=== PATIENT | female | born 1980 | race Caucasian/White ===

== ENCOUNTER 2023-10-20 12:35 | Outpatient (CLI) | payer BC, SELFPAY | END 2023-10-20 12:36 | disposition home or self-care (01) | PROVIDERS: PCP Family Medicine; Visit Provider Physician Assistant | DX: Z01.419 Encounter for gynecological examination (general) (routine) without abnormal findings (principal); E78.5 Hyperlipidemia, unspecified; N92.0 Excessive and frequent menstruation with regular cycle; Z13.1 Encounter for screening for diabetes mellitus; Z13.29 Encounter for screening for other suspected endocrine disorder; Z13.6 Encounter for screening for cardiovascular disorders | CPT/HCPCS: 80061; 82947; 84443 ==

== ENCOUNTER 2023-10-23 12:41 | Outpatient (CLI) | payer BC, SELFPAY ==
--- NOTE | 2023-10-23 13:00 | CRLHL7_ITS ---
For Patients: As a result of the Century Cures Act, medical imaging exams and procedure reports are released immediately into your electronic medical record. You may view this report before your referring provider. If you have questions, please contact your health care provider. INDICATION: excessive and frequent menstruations. pre IUD placement. COMPARISON: none TECHNIQUE: 2D torres scale and color Doppler images were acquired of the pelvis using a transabdominal and transvaginal approach. FINDINGS: Sonographic images demonstrate a normal size and smooth outer contour of the uterus. Uterus measures 12.8 cm in length by 4.7 cm in AP diameter by 6.5 cm in transverse dimension. The myometrium has a normal uniform echotexture. The endometrial lining measures 5.2 mm in composite thickness. The right ovary measures 3.1 x 1.9 x 2.6 cm in size and the left ovary measures 4.1 x 2.8 x 3.6 cm. The ovaries demonstrate normal arterial and venous blood flow on color Doppler analysis. There are no suspicious fluid collections within the cul-de-sac. Simple left ovarian cyst measures 2.6 x 1.7 x 2.1 cm. IMPRESSION: Endometrial thickness 5.2 millimeters. No endometrial fluid. Dictated by Darron Stinson MD @ 10/24/2023 6:59:47 AM (Electronically Signed)
== END 2023-10-23 12:42 | disposition home or self-care (01) ==
LOC: US 12:42
PROVIDERS: PCP Family Medicine; Visit Provider Physician Assistant
DX: N92.0 Excessive and frequent menstruation with regular cycle (principal); R93.89 Abnormal findings on diagnostic imaging of other specified body structures
CPT/HCPCS: 76830; 76856

== ENCOUNTER 2023-11-10 10:01 | Outpatient (CLI) | payer BC, SELFPAY ==
--- NOTE | 2023-11-10 10:27 | W.ANESCHARGE ---
Anesthesia Charges Start Date/Time Anesthesia Start Date: 11/10/23 Anesthesia Start Time: 11:20 Stop Date/Time Anesthesia Stop Date: 11/10/23 Anesthesia Stop Time: 11:42
--- NOTE | 2023-11-10 11:44 | W.ANESCHARGE ---
Anesthesia Charges Start Date/Time Anesthesia Start Date: 11/10/23 Anesthesia Start Time: 11:20 Stop Date/Time Anesthesia Stop Date: 11/10/23 Anesthesia Stop Time: 11:42
== END 2023-11-10 10:02 | disposition home or self-care (01) ==
LOC: OP CLINIC 10:02
PROVIDERS: Visit Provider Internal Medicine
DX: Z12.11 Encounter for screening for malignant neoplasm of colon (principal); K57.30 Diverticulosis of large intestine without perforation or abscess without bleeding
CPT/HCPCS: 00811; 00812; 45378; J2704

== ENCOUNTER 2023-12-17 14:31 | Outpatient (CLI) | payer BC, SELFPAY ==
--- NOTE | 2023-12-17 14:40 | CRLHL7_ITS ---
For Patients: As a result of the Cures Act, medical imaging exams and procedure reports are released immediately into your electronic medical record. You may view this report before your referring provider. If you have questions, please contact your health care provider. BILATERAL DIGITAL SCREENING MAMMOGRAM WITH COMPUTER-AIDED DETECTION AND TOMOSYNTHESIS CLINICAL HISTORY: Routine screening exam. COMPARISON: None. TECHNIQUE: Digital mammogram in CC and MLO projections including computer-aided detection (CAD). Tomosynthesis was used in this interpretation. BREAST COMPOSITION: There are scattered areas of fibroglandular density. FINDINGS: RIGHT Breast: Focal asymmetric density upper outer quadrant 8 cm from the nipple. LEFT Breast: No suspicious findings. IMPRESSION: RIGHT breast asymmetry/mass. RECOMMENDATIONS: Additional mammographic views of the RIGHT breast including 3D spot compression CC/MLO. RIGHT breast ultrasound may also be required. The [facility] will contact the patient for follow-up. BI-RADS Category 0: Incomplete: Need Additional Imaging Evaluation and/or Prior Mammograms for Comparison A lay language report of this examination will be provided to the patient. Dictated by Darron Stinson MD @ 12/26/2023 8:51:56 AM /sp SP/Dictated by: Darron Stinson MD @ 12/26/2023 8:51:00 AM (Electronically Signed)
== END 2023-12-17 14:32 | disposition home or self-care (01) ==
PROVIDERS: Visit Provider Physician Assistant
DX: Z12.31 Encounter for screening mammogram for malignant neoplasm of breast (principal); N63.10 Unspecified lump in the right breast, unspecified quadrant
CPT/HCPCS: 77063; 77067

== ENCOUNTER 2023-12-30 11:59 | Outpatient (CLI) | payer BC, SELFPAY ==
--- NOTE | 2023-12-30 12:00 | CRLHL7_ITS ---
For Patients: As a result of the Century Cures Act, medical imaging exams and procedure reports are released immediately into your electronic medical record. You may view this report before your referring provider. If you have questions, please contact your health care provider. RIGHT DIAGNOSTIC MAMMOGRAM WITH COMPUTER-AIDED DETECTION AND TOMOSYNTHESIS RIGHT BREAST ULTRASOUND CLINICAL HISTORY: RIGHT breast mass/asymmetry. COMPARISON: 12/17/2023. TECHNIQUE: Digital RIGHT mammogram in two projections. Computer-aided detection and tomosynthesis were used in this interpretation. Real-time ultrasound imaging of RIGHT breast with imaging documentation. Scanning was performed by both the technologist and the radiologist. BREAST COMPOSITION: There are scattered areas of fibroglandular density. FINDINGS: 3D CC/MLO RIGHT breast mammogram images submitted. No architectural distortion or suspicious calcifications are present. Decreased conspicuity of the previously noted asymmetric density particularly on the spot MLO view. Targeted RIGHT breast ultrasound performed in the upper-outer quadrant 10 o`clock 9 cm from the nipple. No suspicious mass is present. Normal fat lobules noted. IMPRESSION: No suspicious findings. No evidence of malignancy. RECOMMENDATIONS: Annual BILATERAL screening mammography. BI-RADS Category 2: Benign Results and recommendations discussed with the patient. A lay language report of this examination will be provided to the patient. Dictated by Darron Stinson MD @ 12/30/2023 12:45:50 PM /sp SP/Dictated by: Darron Stinson MD @ 12/30/2023 12:45:00 PM (Electronically Signed)
--- NOTE | 2023-12-30 12:30 | CRLHL7_ITS ---
For Patients: As a result of the Century Cures Act, medical imaging exams and procedure reports are released immediately into your electronic medical record. You may view this report before your referring provider. If you have questions, please contact your health care provider. PLEASE SEE RIGHT BREAST DIAGNOSTIC MAMMOGRAM PERFORMED SAME DAY. CRL:sp SP/Dictated by: Darron Stinson MD @ 12/30/2023 1:30:00 PM (Electronically Signed)
== END 2023-12-30 12:00 | disposition home or self-care (01) ==
LOC: MAMMO 12:01
PROVIDERS: Visit Provider Physician Assistant
DX: N63.10 Unspecified lump in the right breast, unspecified quadrant (principal); R92.8 Other abnormal and inconclusive findings on diagnostic imaging of breast
CPT/HCPCS: 76642; 77065; G0279

== ENCOUNTER 2024-11-01 11:12 | Outpatient (CLI) | payer BC, SELFPAY | END 2024-11-01 11:13 | disposition home or self-care (01) | PROVIDERS: Visit Provider Physician Assistant | DX: E78.5 Hyperlipidemia, unspecified (principal); Z13.9 Encounter for screening, unspecified | CPT/HCPCS: 80053; 80061 ==

== ENCOUNTER 2024-11-03 14:49 | Outpatient (CLI) | payer BC, SELFPAY ==
--- NOTE | 2024-11-03 15:00 | CRLHL7_ITS ---
For Patients: As a result of the Cures Act, medical imaging exams and procedure reports are released immediately into your electronic medical record. You may view this report before your referring provider. If you have questions, please contact your health care provider. Indication: localized swelling Technique: Grayscale and color Doppler ultrasound of the soft tissues about the sternum performed. Comparison: None Findings: Normal subcutaneous tissues. No increased vascularity. Impression: No suspicious findings. Dictated by Darron Stinson MD @ 11/03/2024 3:21:18 PM (Electronically Signed)
== END 2024-11-03 14:50 | disposition home or self-care (01) ==
LOC: US 14:50
PROVIDERS: Visit Provider Physician Assistant
DX: R22.2 Localized swelling, mass and lump, trunk (principal)
CPT/HCPCS: 76604

== ENCOUNTER 2025-01-06 13:03 | Outpatient (CLI) | payer BC, SELFPAY ==
--- NOTE | 2025-01-06 13:20 | CRLHL7_ITS ---
For Patients: As a result of the Cures Act, medical imaging exams and procedure reports are released immediately into your electronic medical record. You may view this report before your referring provider. If you have questions, please contact your health care provider. BILATERAL DIGITAL SCREENING MAMMOGRAM WITH COMPUTER-AIDED DETECTION AND TOMOSYNTHESIS CLINICAL HISTORY: Routine screening exam. COMPARISON: Mammogram 12/17/2023. TECHNIQUE: Digital mammogram in CC and MLO projections including computer-aided detection (CAD) and tomosynthesis. BREAST COMPOSITION: There are scattered areas of fibroglandular density. FINDINGS: RIGHT Breast: There is a focal asymmetry in the upper-outer quadrant, posterior depth. LEFT Breast: No suspicious findings. IMPRESSION: RIGHT breast focal asymmetry. RECOMMENDATIONS: Additional mammographic views of the RIGHT breast including 90-degree lateral, spot compression CC and MLO. RIGHT breast ultrasound may also be required. The [facility] will contact the patient for follow-up. BI-RADS Category 0: Incomplete: Need Additional Imaging Evaluation A lay language report of this examination will be provided to the patient. Dictated by Nevin Willingham MD @ 01/08/2025 7:48:52 AM /sp SP/Dictated by: Nevin Willingham MD @ 01/08/2025 7:48:00 AM (Electronically Signed)
== END 2025-01-06 13:04 | disposition home or self-care (01) ==
LOC: MAMMO 13:04
PROVIDERS: Visit Provider Physician Assistant
DX: Z12.31 Encounter for screening mammogram for malignant neoplasm of breast (principal); N63.10 Unspecified lump in the right breast, unspecified quadrant
CPT/HCPCS: 77063; 77067

== ENCOUNTER 2025-01-19 09:31 | Outpatient (CLI) | payer BC, SELFPAY ==
--- NOTE | 2025-01-19 09:45 | CRLHL7_ITS ---
For Patients: As a result of the Cures Act, medical imaging exams and procedure reports are released immediately into your electronic medical record. You may view this report before your referring provider. If you have questions, please contact your health care provider. DIGITAL DIAGNOSTIC RIGHT MAMMOGRAM USING TOMOSYNTHESIS RIGHT BREAST ULTRASOUND CLINICAL HISTORY: RIGHT breast mass/asymmetry. COMPARISON: 01/06/2025, 12/30/2023, 12/17/2023. TECHNIQUE: Digital RIGHT mammogram in three projections. Tomosynthesis was used in this interpretation. Ultrasound of the RIGHT breast was also performed. BREAST COMPOSITION: There are scattered areas of fibroglandular density. FINDINGS: Additional mammogram images RIGHT breast submitted. Decreased conspicuity of previously noted density. No architectural distortion or suspicious calcifications. Targeted RIGHT breast ultrasound performed 10 o`clock 9 cm from the nipple. Similar hypoechoic circumscribed fibroadenoma measures 6 x 3 x 7 millimeters. No suspicious findings. IMPRESSION: Unchanged subcentimeter fibroadenoma RIGHT breast 10 o`clock 9 cm from the nipple. No evidence of malignancy. RECOMMENDATIONS: Routine screening mammography. A lay language report of this examination will be provided to the patient. BI-RADS Category 2: Benign Dictated by Darron Stinson MD @ 01/19/2025 11:10:27 AM jj/Dictated by: Darron Stinson MD @ 01/19/2025 11:10:00 AM (Electronically Signed)
--- NOTE | 2025-01-19 10:15 | CRLHL7_ITS ---
For Patients: As a result of the Cures Act, medical imaging exams and procedure reports are released immediately into your electronic medical record. You may view this report before your referring provider. If you have questions, please contact your health care provider. SEE DIGITAL DIAGNOSTIC RIGHT MAMMOGRAM PERFORMED SAME DAY CRL:[email or web address] winchester/Dictated by: Darron Stinson MD @ 01/19/2025 11:08:00 AM (Electronically Signed)
== END 2025-01-19 09:32 | disposition home or self-care (01) ==
LOC: MAMMO 09:32
PROVIDERS: Visit Provider Physician Assistant
DX: N63.10 Unspecified lump in the right breast, unspecified quadrant (principal); D24.1 Benign neoplasm of right breast; R92.8 Other abnormal and inconclusive findings on diagnostic imaging of breast
CPT/HCPCS: 76642; 77065; G0279